=== PATIENT | female | born 1975 | race Caucasian/White ===

== ENCOUNTER 2018-02-11 16:39 | Emergency (ER) | payer MEDICAID ==
[~2018-02-11] VITALS: Ht 147.3 cm; Wt 67.0 kg
[2018-02-11 17:27] LABS: CLARITY URINE CLEAR (CLEAR); COLOR URINE YELLOW (YELLOW); KETONES URINE NEGATIVE (NEGATIVE); LEUKOCYTE ESTERASE URINE NEGATIVE (NEGATIVE); NITRITE URINE NEGATIVE (NEGATIVE); OCCULT BLOOD URINE NEGATIVE (NEGATIVE); PROTEIN URINE NEGATIVE (NEGATIVE); SPECIFIC GRAVITY URINE 1.023 (1.005-1.030); UROBILINOGEN URINE 0.2 E.U./dL (0.2-1.0)
[2018-02-11 17:35] LABS: BASOPHILS % 0.7 % (0.0-2.0); EOSINOPHILS % 5.7 % (0.0-5.0); HEMATOCRIT. 39.9 % (36.0-48.0); HEMOGLOBIN. 13.6 g/dL (12.0-16.0); MEAN CORPUSCULAR HEMOGLOBIN 28.7 pg (28.0-32.0); MEAN CORPUSCULAR VOLUME 84.3 fL (81.0-99.0); MEAN PLATELET VOLUME 8.3 fl (7.4-10.4); MONOCYTES % 8.9 % (2.0-8.0); NEUTROPHILS % 52.7 % (40.0-76.0); PLATELET 251 x1000/uL (130-400); RED BLOOD CELL COUNT 4.73 mill/uL (4.2-5.4); RED CELL DISTRIBUTION WIDTH 13.2 % (11.6-14.6)
[2018-02-11 17:43] LABS: PROTHROMBIN TIME 10.4 sec (9.4-11.6)
[2018-02-11 17:46] LABS: CHLORIDE 105 mEq/L (98-107)
[2018-02-11 17:51] LABS: HCG SCREEN NEGATIVE
[2018-02-12 00:45] VITALS: BP 121/82
== END 2018-02-12 01:07 | disposition home or self-care (01) ==
LOC: ER 16:39
DX: G89.29 Other chronic pain (principal); R10.30 Lower abdominal pain, unspecified; Z88.5 Allergy status to narcotic agent
CPT/HCPCS: 36415; 80053; 81003; 83690; 84703; 85025; 85610; 99284

== ENCOUNTER 2018-11-06 10:50 | Emergency (ER) | payer MEDICAID ==
[~2018-11-06] VITALS: Ht 152.4 cm; Wt 43.0 kg
[2018-11-06] MEDS ORDERED: KETOROLAC 30MG/ML VIAL IV STA (11:32)
[2018-11-06] MEDS ORDERED: FAMOTIDINE 20MG/2ML VIAL IV STA (11:32)
[2018-11-06] MEDS ORDERED: SODIUM CHLORIDE 0.9% 1,000 ML IV ONE (11:32)
[2018-11-06 12:10] LABS: BASOPHILS % 0.5 % (0.0-2.0); EOSINOPHILS % 1.5 % (0.0-5.0); HEMATOCRIT. 39.4 % (36.0-48.0); HEMOGLOBIN. 13.5 g/dL (12.0-16.0); LYMPHOCYTES % 31.7 % (20.0-50.0); MEAN CORPUSCULAR HEMOGLOBIN 29.4 pg (28.0-32.0); MEAN CORPUSCULAR VOLUME 85.7 fL (81.0-99.0); MEAN PLATELET VOLUME 8.4 fl (7.4-10.4); MONOCYTES % 7.9 % (2.0-8.0); NEUTROPHILS % 58.4 % (40.0-76.0); PLATELET 239 x1000/uL (130-400)
[2018-11-06 12:15] LABS: CHLORIDE 105 mEq/L (98-107)
[2018-11-06 12:22] LABS: CLARITY URINE CLEAR (CLEAR); COLOR URINE YELLOW (YELLOW); KETONES URINE NEGATIVE (NEGATIVE); LEUKOCYTE ESTERASE URINE TRACE (NEGATIVE); NITRITE URINE NEGATIVE (NEGATIVE); OCCULT BLOOD URINE NEGATIVE (NEGATIVE); PH URINE 5.5 (4.5-8.0); PROTEIN URINE NEGATIVE (NEGATIVE); SPECIFIC GRAVITY URINE 1.003 (1.005-1.030); UROBILINOGEN URINE 0.2 E.U./dL (0.2-1.0)
[2018-11-06 12:37] LABS: HCG SCREEN NEGATIVE
[2018-11-06] MEDS ORDERED: POTASSIUM CHLORIDE 20MEQ TABLET SR PO ONE (13:00)
[2018-11-06 14:00] VITALS: BP 109/62
== END 2018-11-06 14:24 | disposition home or self-care (01) ==
LOC: ER 12:08
DX: R10.816 Epigastric abdominal tenderness (principal); E87.6 Hypokalemia; R39.15 Urgency of urination; R11.2 Nausea with vomiting, unspecified; K59.00 Constipation, unspecified; N83.209 Unspecified ovarian cyst, unspecified side; Z88.6 Allergy status to analgesic agent
CPT/HCPCS: 36415; 74022; 80053; 81003; 81025; 83690; 84703; 85025; 96361; 96374; 96375; 99284; J1885; J3490; J7030

== ENCOUNTER 2019-06-16 19:12 | Emergency (ER) | payer MEDICAID ==
[~2019-06-16] VITALS: Ht 152.4 cm; Wt 66.4 kg
[2019-06-17 01:33] LABS: BASOPHILS % 0.4 % (0.0-2.0); EOSINOPHILS % 1.6 % (0.0-5.0); HEMATOCRIT. 36.9 % (36.0-48.0); HEMOGLOBIN. 12.6 g/dL (12.0-16.0); LYMPHOCYTES % 33.1 % (20.0-50.0); MEAN CORPUSCULAR HEMOGLOBIN 29.1 pg (28.0-32.0); MEAN CORPUSCULAR VOLUME 85.5 fL (81.0-99.0); MEAN PLATELET VOLUME 7.7 fl (7.4-10.4); MONOCYTES % 8.1 % (2.0-8.0); NEUTROPHILS % 56.8 % (40.0-76.0); PLATELET 226 x1000/uL (130-400); RED BLOOD CELL COUNT 4.32 mill/uL (4.2-5.4); RED CELL DISTRIBUTION WIDTH 13.5 % (11.6-14.6)
[2019-06-17 01:35] LABS: CHLORIDE 106 mEq/L (98-107)
[2019-06-17 02:37] LABS: CLARITY URINE CLEAR (CLEAR); COLOR URINE YELLOW (YELLOW); KETONES URINE NEGATIVE (NEGATIVE); LEUKOCYTE ESTERASE URINE NEGATIVE (NEGATIVE); NITRITE URINE NEGATIVE (NEGATIVE); OCCULT BLOOD URINE NEGATIVE (NEGATIVE); PH URINE 5.5 (4.5-8.0); PROTEIN URINE NEGATIVE (NEGATIVE); SPECIFIC GRAVITY URINE 1.015 (1.005-1.030); UROBILINOGEN URINE 0.2 E.U./dL (0.2-1.0)
[2019-06-17 02:43] LABS: UCG SCREEN NEGATIVE
[2019-06-17 06:10] VITALS: BP 98/18
== END 2019-06-17 06:37 | disposition home or self-care (01) ==
LOC: ER 19:12
DX: R10.2 Pelvic and perineal pain (principal); Z88.6 Allergy status to analgesic agent
CPT/HCPCS: 36415; 76830; 76856; 80048; 81025; 99284

== ENCOUNTER 2023-06-16 00:11 | Emergency (ER) | payer MEDICAID ==
[~2023-06-16] VITALS: Ht 147.3 cm; Wt 65.3 kg
[2023-06-16 00:30] VITALS: BP 134/89; O2SAT 98
[2023-06-16 02:14] LABS: CLARITY URINE CLEAR (CLEAR); COLOR URINE YELLOW (YELLOW); KETONES URINE NEGATIVE (NEGATIVE); LEUKOCYTE ESTERASE URINE 1+ (NEGATIVE); NITRITE URINE NEGATIVE (NEGATIVE); OCCULT BLOOD URINE NEGATIVE (NEGATIVE); PH URINE 5.5 (4.5-8.0); PROTEIN URINE NEGATIVE (NEGATIVE); SPECIFIC GRAVITY URINE 1.007 (1.005-1.030); UROBILINOGEN URINE 0.2 E.U./dL (0.2-1.0)
[2023-06-16] MEDS ORDERED: NITR100C MT (03:47)
[2023-06-16] MEDS ORDERED: FLUC150T46 MT (03:47)
[2023-06-16] MEDS ORDERED: FLUCONAZOLE 100MG TABLET PO ONE (04:00)
[2023-06-16 04:15] VITALS: PULSE 73; RESP 20; TEMP 98.9
[2023-06-16] MEDS ORDERED: FLUCONAZOLE 150MG TABLET PO NR (04:15)
== END 2023-06-16 04:15 | disposition home or self-care (01) ==
LOC: ER 01:08
DX: B37.31 Acute candidiasis of vulva and vagina (principal); N39.0 Urinary tract infection, site not specified
CPT/HCPCS: 81003; 81025; 99283

== ENCOUNTER 2024-08-31 12:06 | Emergency (ER) | payer MEDICAID ==
[~2024-08-31] VITALS: Ht 154.9 cm; Wt 69.0 kg
[2024-08-31 12:10] VITALS: O2SAT 98
[2024-08-31 12:42] LABS: BASOPHILS % 0.7 % (0.0-2.0); EOSINOPHILS % 1.5 % (0.0-5.0); HEMATOCRIT. 40.5 % (36.0-48.0); LYMPHOCYTES % 35.7 % (20.0-50.0); MEAN CORPUSCULAR HEMOGLOBIN 28.1 pg (28.0-32.0); MEAN CORPUSCULAR VOLUME 87.7 fL (81.0-99.0); MONOCYTES % 7.8 % (2.0-8.0); NEUTROPHILS % 54.3 % (40.0-76.0); PLATELET 215 x1000/uL (130-400); RED BLOOD CELL COUNT 4.62 mill/uL (4.2-5.4); RED CELL DISTRIBUTION WIDTH 13.3 % (11.6-14.6); WHITE BLOOD COUNT 5.9 x1000/uL (4.5-11.0)
[2024-08-31 12:53] LABS: CHLORIDE 106 mEq/L (98-107); POTASSIUM 3.9 mEq/L (3.5-5.1); SODIUM 137 mEq/L (136-145)
[2024-08-31 12:54] LABS: CALCIUM 9.5 mg/dL (8.7-10.4); CARBON DIOXIDE 26 mEq/L (21-32)
[2024-08-31 12:59] LABS: CREATININE 0.9 mg/dL (0.6-1.0); GLUCOSE 111 mg/dL (70-105); UREA NITROGEN BLOOD 11 mg/dL (9-23)
[2024-08-31 13:10] LABS: TROPONIN I HIGH SENSITIVITY < 4 ng/L (3.0-34)
[2024-08-31] MEDS ORDERED: IBUPROFEN 600MG TABLET PO ONE (13:30)
[2024-08-31] MEDS ORDERED: METHOCARBAMOL 500MG TABLET PO ONE (13:30)
[2024-08-31 14:57] LABS: HCG SCREEN NEGATIVE
[2024-08-31] MEDS ORDERED: IBUP-2029 MT (15:48)
[2024-08-31] MEDS ORDERED: METH-653 MT (15:49)
[2024-08-31] MEDS: IBUPROFEN 600MG TABLET PO NR (16:02)
[2024-08-31] MEDS: METHOCARBAMOL 500MG TABLET PO NR (16:02)
[2024-08-31 16:07] VITALS: BP 144/79; PULSE 74; RESP 18; TEMP 37.11408; O2SAT 98
== END 2024-08-31 16:07 | disposition home or self-care (01) ==
LOC: ER 12:06
DX: R07.89 Other chest pain (principal); S29.012A Strain of muscle and tendon of back wall of thorax, initial encounter; Z88.5 Allergy status to narcotic agent; X58.XXXA Exposure to other specified factors, initial encounter; Y93.89 Activity, other specified; Y92.89 Other specified places as the place of occurrence of the external cause; Y99.8 Other external cause status
CPT/HCPCS: 36415; 71045; 80048; 84484; 84703; 85025; 85379; 93005; 99285

== ENCOUNTER 2024-11-26 14:50 | Emergency (ER) | payer MEDICAID ==
[~2024-11-26] VITALS: Ht 152.4 cm; Wt 66.0 kg
[~2024-11-26 14:50] MED LIST: IBUP-2029 MT; METH-653 MT
[2024-11-26 15:06] VITALS: O2SAT 98
[2024-11-26 15:59] LABS: BASOPHILS % 0.4 % (0.0-2.0); EOSINOPHILS % 1.4 % (0.0-5.0); HEMATOCRIT. 43.7 % (36.0-48.0); HEMOGLOBIN. 14.5 g/dL (12.0-16.0); LYMPHOCYTES % 23.3 % (20.0-50.0); MEAN CORPUSCULAR HEMOGLOBIN 28.8 pg (28.0-32.0); MEAN CORPUSCULAR HGB CONC 33.1 g/dL (31.0-37.0); MEAN CORPUSCULAR VOLUME 86.9 fL (81.0-99.0); MEAN PLATELET VOLUME 8.3 fl (7.4-10.4); MONOCYTES % 7.5 % (2.0-8.0); NEUTROPHILS % 67.4 % (40.0-76.0); PLATELET 281 x1000/uL (130-400); RED BLOOD CELL COUNT 5.03 mill/uL (4.2-5.4); RED CELL DISTRIBUTION WIDTH 13.2 % (11.6-14.6); WHITE BLOOD COUNT 7.3 x1000/uL (4.5-11.0)
[2024-11-26 16:05] LABS: POTASSIUM 3.6 mEq/L (3.5-5.1)
[2024-11-26 16:07] LABS: CALCIUM 10.3 mg/dL (8.7-10.4)
[2024-11-26 17:31] LABS: CLARITY URINE CLOUDY (CLEAR); COLOR URINE DARK YELLOW (YELLOW); GLUCOSE URINE NEGATIVE (NEGATIVE); KETONES URINE TRACE (NEGATIVE); LEUKOCYTE ESTERASE URINE 1+ (NEGATIVE); NITRITE URINE NEGATIVE (NEGATIVE); OCCULT BLOOD URINE 3+ (NEGATIVE); PH URINE 5.5 (4.5-8.0); PROTEIN URINE 1+ (NEGATIVE); SPECIFIC GRAVITY URINE 1.025 (1.005-1.030)
[2024-11-26 18:34] LABS: BACTERIA URINE 1+; RBC URINE TNTC /hpf (0-2); SQUAMOUS EPITHELIAL CELL URINE 3+ /lpf (RARE/1+)
[2024-11-26] MEDS: KETOROLAC 30MG/ML VIAL IM ONE (20:45)
[2024-11-26] MEDS: ONDANSETRON HCL 4MG/2ML INJ IM ONE (20:45)
[2024-11-26 21:24] LABS: ALANINE AMINOTRANSFERASE 29 IU/L (10-49); ALBUMIN 4.8 g/dL (3.2-4.8); ASPARTATE AMINOTRANSFERASE 24 IU/L (<34); BILIRUBIN DIRECT 0.2 mg/dL (<=3.0); BILIRUBIN TOTAL 0.6 mg/dL (0.1-1.0); PROTEIN TOTAL 8.1 g/dL (6.0-8.3)
[2024-11-26] MEDS ORDERED: NITR-87 MT (22:52)
[2024-11-26 23:40] VITALS: BP 116/73; PULSE 55; RESP 16; TEMP 36.78072; O2SAT 99
== END 2024-11-26 23:40 | disposition home or self-care (01) ==
LOC: ER 14:50
DX: N39.0 Urinary tract infection, site not specified (principal); R10.31 Right lower quadrant pain; Z88.5 Allergy status to narcotic agent
CPT/HCPCS: 80076; 80048; 81003; 81025; 83690; 85025; 36415; 74176; 96372; 99285; J1885; J2405; Z7610